=== PATIENT | male | born 1980 | race Caucasian/White ===

== ENCOUNTER 2019-04-10 23:10 | Emergency (ER) | payer BC ==
[~2019-04-10] VITALS: Ht 167.6 cm; Wt 78.9 kg
[2019-04-11 00:05] VITALS: Ht 167.6 cm; Wt 78.9 kg
[2019-04-11 07:12] VITALS: BP 138/68
== END 2019-04-11 07:12 | disposition home or self-care (01) ==
LOC: ED 23:10
DX: S61.210A Laceration without foreign body of right index finger without damage to nail, initial encounter (principal); W26.8XXA Contact with other sharp object(s), not elsewhere classified, initial encounter; Y93.89 Activity, other specified; Y92.89 Other specified places as the place of occurrence of the external cause; Y99.8 Other external cause status
CPT/HCPCS: J2001